=== PATIENT | female | born 1965 | race Caucasian/White ===

== ENCOUNTER 2021-10-12 22:59 | Emergency (ER) | payer MEDICAID, OTHER ==
[~2021-10-12] VITALS: Ht 149.8 cm; Wt 76.2 kg
--- OUTSIDE RECORDS SUMMARY | 2021-10-12 23:05 | XMS REPORT | Clinical Summary ---
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 Active clonazePAM (KLONOPIN) 2 Take 2 mg by 0 MG tablet mouth 3 (three) times a day as needed for anxiety. Active pantoprazole (PROTONIX) Take 40 mg by 0 40 MG tablet mouth daily. Active HYDROcodone-acetaminophen Take 1-2 10 tablet 0 (NORCO) 5-325 mg per tablets by 4 tablet mouth every 6 (six) hours as needed for pain. Active oxyCODONE-acetaminophen Take 1-2 20 tablet 0 (PERCOCET) 5-325 mg per tablets by 4 tablet mouth every 6 (six) hours as needed for pain. Active oxyCODONE-acetaminophen TK 1 T PO Q 40 0 0 (PERCOCET) 10-325 mg per 6 H PRF PAIN 3 tablet FOR 10 DAYS Active Problems Problem Noted Date Abdominal pain 06/24/2013 Overview: Formatting of this note might be differ ent from the original. ICD-10 conversion Diarrhea 06/24/2013 Peptic ulcer 12/30/2012 Overview: Formatting of this note might be differ ent from the original. ICD-10 conversion Family History Medical History Relation Name Comments Breast cancer Other Family History; Tahmina ast Cancer; Ovarian cancer Other Family History; Ova manoj Cancer; Relation Name Status Comments Other Social History Date Tobacco Use Types Packs/Day Years Used Current Every Day Smoker Comments Alcohol Use Standard Drinks/Week No 0 (1 standard drink = 0.6 o z pure alcohol) Sex Assigned at Date Recorded Not on file Last Filed Vital Signs Reading Time Taken Comments Vital Sign 132/82 05/25/2014 1:05 PM CDT Blood Pressure 85 05/25/2014 1:05 PM CDT Pulse 36.9 C (98.4 F) 05/25/2014 1:05 PM CDT Temperature 16 05/25/2014 1:05 PM CDT Respiratory Rate 98% 05/25/2014 1:05 PM CDT Oxygen Saturation - - Inhaled Oxygen Concentration 78 kg (172 lb) 05/25/2014 1:05 PM CDT Weight 149.9 cm (4' 11") 02/21/2014 10:31 AM CDT Height 34.74 02/21/2014 10:31 AM CDT Body Mass Index Plan of Treatment Not on file Results Not on filefrom Last 3 Months
--- NOTE | 2021-10-12 23:35 | Diagnostic Imaging Report ---
PROCEDURE: CT head without contrast. TECHNIQUE: Multiple contiguous axial images were obtained through the brain without the use of intravenous contrast. Auto Exposure Controls were utilized during the CT exam to meet ALARA standards for radiation dose reduction. INDICATION: Stroke symptoms. FINDINGS: The ventricles and sulci are within normal limits. There is no hydrocephalus or cerebral edema. There is no midline shift or mass effect. There is no intracranial mass, hemorrhage, or extra-axial fluid collection. The visualized paranasal sinuses and mastoid air cells are clear. There are no regional areas of decreased attenuation appreciated to suggest an acute CVA. IMPRESSION: No acute intracranial abnormality. Dictated by: Dictated on workstation # [id number]
--- NOTE | 2021-10-12 23:40 | ED General ---
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 Patient states that she can think of the words but is having trouble getting them out. Patient has a family history of brain aneurysm with two siblings, one who because of it. Patient is concerned. Patient denies having a headache currently. Patient does state that she has been sick for about 2 weeks with cough, fever, nausea and vomiting. Patients eyes are bloodshot and she states it is from coughing hard. Patient denies shortness of breath at this time. Patient is able to transfer normally and has no other complaints. Source of Information: Patient History of Present Illness Date Seen by Provider: Oct 12, 2021 Time Seen by Provider: 23:10 Initial Comments 56-year-old female presenting by private vehicle with complaints of developing trouble finding words around 9 PM. She has been sick with cough and upper respiratory infection for the last 2 weeks or more. She has been coughing to the point that she has burst blood vessels on the surface of her eyes. She has not been running a fever per the patient. She has a family history of brain aneurysms and siblings and was concerned that she may also have the aneurysm. She denies having any headache. She has been having swelling to her gums and around the roof of her mouth where she has multiple decayed teeth. She denies having any numbness or weakness in her arms or legs. She has no change in her vision. She denies any pain or burning with urination. She also denies any change in her bowels such as diarrhea. She has not been dizzy or lightheaded. She is anxious and states that she needs to get back with psychiatry to get back on her chronic medications that she takes for anxiety and agoraphobia. She also admits to history of methamphetamine abuse and IV drug abuse but states that she has been clean for 25 years. Timing/Duration: 1-3 Hours (Around 2100 tonight) Severity: Moderate Associated Systoms: No Chest Pain; Cough (For over 2 weeks); No Diaphoresis, No Fever/Chills, No Headaches, No Loss of Appetite, No Malaise, No Nausea/Vomiting, No Seizure, No Shortness of Air, No Syncope, No Weakness Allergies and Home Medications Allergies Coded Allergies: No Known Drug Allergies (Unverified , 10/12/21) Patient Home Medication List Home Medication List Reviewed: Yes Review of Systems Review of Systems Constitutional: No chills, No dizziness, No fever EENTM: nose congestion, other (Drainage from her nose backing up through her tear ducts into her eyes. Eyes matted with purulent drainage from nose. bilateral subconjunctival hemorrhage due to cough); No eye pain Respiratory: cough; No hemoptysis, No phlegm, No stridor; wheezing Cardiovascular: No chest pain, No palpitations Gastrointestinal: No abdominal pain, No nausea, No vomiting Genitourinary: No dysuria, No frequency Musculoskeletal: no symptoms reported Skin: No rash Psychiatric/Neurological: Anxiety; Denies Headache, Denies Numbness, Denies Paresthesia, Denies Weakness Past Dytreww-[id number]-Fhsrkt Hx Patient Social History Tobacco Use?: Yes Smoking Status: Current Everyday Smoker Smokeless Tobacco Frequency: Current Everyday User Substance use?: No Additional substance use comme: Previous IV drug use, has been clean for 6 years Alcohol Use?: No Pt feels they are or have been: No Past Medical History Surgery/Hospitalization HX: IV Drug Abuse, Mehtamphetamine Abuse, Anxiety Physical Exam Vital Signs Vital Signs - First Documented 10/12/21 23:02 Temp 36.1 Pulse 89 Resp 18 B/P (MAP) 153/90 (111) Pulse Ox 99 O2 Delivery Room Air Capillary Refill : Less Than 3 Seconds Height, Weight, BMI Height: '" Weight: lbs. oz. kg; 33.00 BMI Method: General Appearance: Anxious, Obese HEENT: PERRL/EOMI, Moist Mucous Membranes, Other (Widespread dental decay with multiple missing teeth. Gum swelling around teeth especially on the maxillary aspect of her dentition) Neck: Full Range of Motion, Normal Inspection, Non Tender, Supple Respiratory: Chest Non Tender, Lungs Clear, Normal Breath Sounds, No Accessory Muscle Use, No Respiratory Distress Cardiovascular: Regular Rate, Rhythm, Normal Peripheral Pulses Gastrointestinal: Normal Bowel Sounds, No Pulsatile Mass, Non Tender, Soft Rectal: Deferred Back: No CVA Tenderness, No Vertebral Tenderness Extremity: Normal Capillary Refill, Normal Inspection, No Pedal Edema Neurologic/Psychiatric: Alert, Oriented x3, post form remover II-XII Norm as Tested Skin: Warm/Dry, Other (multiple scars on arms with track ryan) Progress/Results/Core Measures Suspected Sepsis SIRS Temperature: Pulse: 89 Respiratory Rate: 18 Laboratory Tests 10/13/21 00:28: White Blood Count 13.1H Blood Pressure 153 /90 Mean: 111 Laboratory Tests 10/13/21 00:28: Creatinine 0.79, INR Comment 1.1, Platelet Count 510H, Total Bilirubin 0.2 Results/Orders Lab Results Laboratory Tests Test 10/12/21 23:41 10/13/21 00:02 10/13/21 00:23 10/13/21 00:28 Range/Units Urine Color DARK YELLOW Urine Clarity CLEAR Urine pH 6.0 5-9 Urine Specific [place] >=1.030 1.016-1.022 Urine Protein 2+ H NEGATIVE Urine Glucose (UA) TRACE H NEGATIVE Urine Ketones NEGATIVE NEGATIVE Urine Nitrite NEGATIVE NEGATIVE Urine Bilirubin 1+ H NEGATIVE Urine Urobilinogen 1.0 < = 1.0 MG/DL Urine Leukocyte Esterase NEGATIVE NEGATIVE Urine RBC (Auto) 1+ H NEGATIVE Urine RBC 2-5 H /HPF Urine WBC 0-2 /HPF Urine Squamous Epithelial Cells 5-10 /HPF Urine Crystals NONE /LPF Urine Bacteria FEW H /HPF Urine Casts PRESENT /LPF Urine Hyaline Casts 2-5 H /LPF Urine Granular Casts 0-2 H /LPF Urine Mucus LARGE H /LPF Urine Culture Indicated NO Urine Opiates Screen NEGATIVE NEGATIVE Urine Oxycodone Screen NEGATIVE NEGATIVE Urine Methadone Screen NEGATIVE NEGATIVE Urine Propoxyphene Screen NEGATIVE NEGATIVE Urine Barbiturates Screen NEGATIVE NEGATIVE Ur Tricyclic Antidepressants Screen NEGATIVE NEGATIVE Urine Phencyclidine Screen NEGATIVE NEGATIVE Urine Amphetamines Screen POSITIVE H NEGATIVE Urine Methamphetamines Screen POSITIVE H NEGATIVE Urine Benzodiazepines Screen POSITIVE H NEGATIVE Urine Cocaine Screen NEGATIVE NEGATIVE Urine Cannabinoids Screen NEGATIVE NEGATIVE Influenza Type A Antigen NEGATIVE NEGATIVE Influenza Type B Antigen NEGATIVE NEGATIVE Glucometer 131 H 70-110 MG/DL White Blood Count 13.1 H 4.3-11.0 10^3/uL Red Blood Count 4.86 3.80-5.11 10^6/uL Hemoglobin 13.4 11.5-16.0 g/dL Hematocrit 41 35-52 % Mean Corpuscular Volume 83 80-99 fL Mean Corpuscular Hemoglobin 28 25-34 pg Mean Corpuscular Hemoglobin Concent 33 32-36 g/dL Red Cell Distribution Width 14.7 H 10.0-14.5 % Platelet Count 510 H 130-400 10^3/uL Mean Platelet Volume 9.0 9.0-12.2 fL Immature Granulocyte % (Auto) 0 % Neutrophils (%) (Auto) 66 42-75 % Lymphocytes (%) (Auto) 23 12-44 % Monocytes (%) (Auto) 7 0-12 % Eosinophils (%) (Auto) 3 0-10 % Basophils (%) (Auto) 1 0-10 % Neutrophils # (Auto) 8.7 H 1.8-7.8 X 10^3 Lymphocytes # (Auto) 3.0 1.0-4.0 X 10^3 Monocytes # (Auto) 1.0 0.0-1.0 X 10^3 Eosinophils # (Auto) 0.4 H 0.0-0.3 10^3/uL Basophils # (Auto) 0.1 0.0-0.1 10^3/uL Immature Granulocyte # (Auto) 0.1 0.0-0.1 10^3/uL Prothrombin Time 14.4 12.2-14.7 SEC INR Comment 1.1 0.8-1.4 Activated Partial Thromboplast Time 26 24-35 SEC Sodium Level 136 135-145 MMOL/L Potassium Level 3.5 L 3.6-5.0 MMOL/L Chloride Level 99 98-107 MMOL/L Carbon Dioxide Level 22 21-32 MMOL/L Anion Gap 15 H 5-14 MMOL/L Blood Urea Nitrogen 12 7-18 MG/DL Creatinine 0.79 0.60-1.30 MG/DL Estimat Glomerular Filtration Rate 76 BUN/Creatinine Ratio 15 Glucose Level 135 H 70-105 MG/DL Calcium Level 9.2 8.5-10.1 MG/DL Corrected Calcium 9.2 8.5-10.1 MG/DL Total Bilirubin 0.2 0.1-1.0 MG/DL Aspartate Amino Transf (AST/SGOT) 12 5-34 U/L Alanine Aminotransferase (ALT/SGPT) 13 0-55 U/L Alkaline Phosphatase 123 40-136 U/L Troponin I < 0.30 <0.30 NG/ML Total Protein 8.3 H 6.4-8.2 GM/DL Albumin 4.0 3.2-4.5 GM/DL Serum Alcohol < 10 <10 MG/DL My Orders Orders - TILA COFFEY MD Ct Head Wo (10/12/21 23:05) Cbc With Automated Diff (10/12/21 23:15) Protime With Inr (10/12/21:15) Partial Thromboplastin Time (10/12/21:15) Comprehensive Metabolic Panel (10/12/21:15) Troponin I Fs (10/12/21 23:15) Ua Culture If Indicated (10/12/21 23:15) Ekg Tracing (10/12/21:15) Nothing By Mouth (10/13/21 Breakfast) Accucheck Stat ONCE (10/12/21 23:15) Ed Iv/Invasive Line Start (10/12/21 23:15) Vital Signs Stroke Patient Q15M (10/12/21:15) O2 (10/12/21:15) Intake & Output 06,14,22 (10/12/21 23:15) Monitor-Rhythm Ecg Trace Only (10/12/21:15) Dysphagia Screening Tool (10/12/21:) Drug Screen Stat (Urine) (10/12/21:) Alcohol (10/12/21:15) Covid 19 Inhouse Test (10/12/21 23:36) Influenza A & B Antigens (10/12/21 23:36) Isolation Central Supply Req (10/12/21 23:36) Chest 1 View Ap/Pa Only (10/13/21 00:06) Vital Signs/I&O 10/12/21 23:02 Temp 36.1 Pulse 89 Resp 18 B/P (MAP) 153/90 (111) Pulse Ox 99 O2 Delivery Room Air Capillary Refill : Less Than 3 Seconds Blood Pressure Mean: 111 Progress Note #1: Progress Note As patient was having difficulty with her words and states that this started around [address] scan to evaluate for acute hemorrhage or stroke. NIH scale is 2 based off of expressive aphasia and dysarthria. With her cough for over 2 weeks and shortness of breath we will also obtain a chest x-ray and Covid and influenza swab. Try to obtain urine to check for infection as well as urine drug screen. Alcohol level. Will obtain basic labs and electrolytes. Progress Note #2: Progress Note CT had did not demonstrate any acute hemorrhage or bleeding. No acute stroke. Despite multiple attempts by nursing we were unable to obtain IV access. Labs were finally obtained on the patient. Patient had fluctuating symptoms were at one moment she would be clear in her speech and another she would have difficulty finding words when speaking. Due to the fluctuation of her symptoms as well as the relatively mild symptoms and her lack of IV access she is not a TPA candidate. Progress Note #3: Progress Note Labs show elevated white blood cell count within normal differential. Her urine did not show any sign of infection. Her chemistry panel did not show any acute electrolyte imbalance to account for her symptoms. Her coags do not show acute significant abnormality. Her alcohol level was 0 and her urine drug screen was positive for methamphetamines, amphetamines, benzodiazepines. When I advised her of the results she stated that she did use meth yesterday. She was still very concerned that she maybe had an aneurysm or something going on with her brain. I advised her that the testing I had here had been maxed out and I did not have any additional imaging or testing I can do at this time. She would need to go to a larger facility with an actual hospital that had neurology and MRI facilities available. Patient was requesting to go to [facility] if possible. I placed a phone call to the [facility] transfer center and was advised that they did not have any telemetry or monitored beds within the system. I then placed a call to the [facility] access center. I spoke with DENISHA Hanks. She reported that [facility] did have monitored beds available. She will have the resident call back and speak with me about the patient. [id number] Dr. Santos accepted on behalf of Dr. Mendoza for the patient to come to telemetry bed in [facility]. Progress Note #4: Progress Note When I went back to advise the patient of having a excepting location and physician she refused ambulance transport stating that she had agoraphobia and could not stand being in close a small space like the back of an ambulance. Despite offering to give anxiety medicine or help with her anxiety as well as counseled about the benefits versus the risks of not taking any ambulance patient insisted that she would not go by ambulance. She demanded to have her drive her instead. 0205 I called back to update the [facility] access center and spoke with DENISHA Combs. Sh e stated that they would not be able to make the patient a direct admit with her coming by private vehicle. She would have to start in the ED. There was no guarantee a bed would be available or saved for her. I updated the patient about this and she continued to insist that she did not want to go by ambulance. ECG Initial ECG Impression Date: Oct 12, 2021 Initial ECG Impression Time: 23:42 Initial ECG Rate: 86 Initial ECG Rhythm: Normal Sinus Initial ECG Comparisson: No Previous ECG Available Comment Normal sinus rhythm with a heart rate of 86 bpm. [place] interval 157 ms. There are premature atrial complexes. There is LVH with secondary repolarization abnormality. QT interval 394 ms with a QTc interval 472 ms. She has no acute ST elevation. There is artifact on the tracing. There is no prior tracing available for comparison Diagnostic Imaging Diagonstic Imaging: CT Plain Films/CT/US/NM/MRI: head Comments NAME: HOLLIE MARCOS [facility] REC#: [id number] PT STATUS: REG ER : [id number] PHYSICIAN: TILA COFFEY MD ADMIT DATE: 10/12/21/ER FS Draft Date of Exam:10/12/21 CT HEAD WO PROCEDURE: CT head without contrast. TECHNIQUE: Multiple contiguous axial images were obtained through the brain without the use of intravenous contrast. Auto Exposure Controls were utilized during the CT exam to meet ALARA standards for radiation dose reduction. INDICATION: Stroke symptoms. FINDINGS: The ventricles and sulci are within normal limits. There is no hydrocephalus or cerebral edema. There is no midline shift or mass effect. There is no intracranial mass, hemorrhage, or extra-axial fluid collection. The visualized paranasal sinuses and mastoid air cells are clear. There are no regional areas of decreased attenuation appreciated to suggest an acute CVA. IMPRESSION: No acute intracranial abnormality. Dictated on workstation # [id number] Dict: 10/12/21 2331 Trans: 10/12/21 2335 [facility] [id number] Interpreted by: PEEWEE KOVACS MD Electronically signed by: Reviewed: Reviewed by Me Diagonstic Imaging: Xray Plain Films/CT/US/NM/MRI: chest Comments No acute process Reviewed: Reviewed by Me Departure Impression Primary Impression: Expressive aphasia Additional Impressions: Dysarthria Upper respiratory infection with cough and congestion Person under investigation for COVID-19 Methamphetamine abuse Disposition: XF SHT-TRM HOSP Condition: Stable Transfer Transfer Reason: Exceeds level of care (Needs stroke work up with Neuro eval) Time Spoke to Accepting Phy: 01:58 Transfer Progress Notes d/w Dr. Fernández for Dr. Mendoza at [facility] and she accepted pt for transfer. They will call back with bed assignment. When advised pt of being accepted and needing to go by ambulance she refused stating she had agoraphobia and wanted her to drive her. She said she could not tolerate being inside a small ambulance. Despite explaining to her that she would need to be monitored for her safety and to make sure her neurologic status did not change or worsen she continued to refuse ambulance transport. She was adamant that she needed her to drive her. She also was very anxious and stated she would have a panic attack and not be able to tolerate it if she did not go with him. I advised her that she would have to go through the emergency department at [facility] and we would send copies of our labs radiology testing but she may have to do some test over. She voiced understanding and stated that she still wanted her to drive her. 0205 I called back to the [facility] access center to update DENISHA Hanks who I been working with about the transfer. I reached DENISHA Combs and updated her about the patient wanting to come by private vehicle and not by ambulance transport. She acknowledged that the patient would need to start over in the ED and there was no guarantee that she would have a bed by coming by private vehicle. Transfer Facility: [facility] Method of Transfer: Private Vehicle NIH Stroke Scale NIH Stroke Scale NIH : Select: Initial Level of Consciousness: 0=Alert Level of Consciousness-Questio: 0=Answers both month/age LOC Commands: 0=Performs both tasks Gaze: 0=Normal Visual Lozada: 0=No visual loss Facial Movement (Facial Paresi: 0=Normal symmetrical mnt Motor Function-Arms Right: 0=No drift Motor Function-Arms Left: 0=No drift Motor Function-Legs Right: 0=No drift Motor Function-Legs Left: 0=No drift Limb Ataxia: 0=Absent Sensory: 0=Normal:no loss Best Language: 1=Mild to moderat aphasia Dysarthria: 1=Mild to moderate loss Extinction & Inattention: 0=No abnormality NIH Stroke Scale Score: 2 TILA COFFEY MD Oct 12, 2021 23:40
[2021-10-12 23:53] LABS: BILIRUBIN,URINE 1+ (NEGATIVE); CLARITY,URINE CLEAR; COLOR,URINE DARK YELLOW; GLUCOSE, URINE (UA) TRACE (NEGATIVE); KETONES,URINE NEGATIVE (NEGATIVE); NITRITE,URINE NEGATIVE (NEGATIVE); PROTEIN,URINE 2+ (NEGATIVE)
[2021-10-12 23:54] LABS: BACTERIA,URINE FEW /HPF; GRANULAR CASTS,URINE 0-2 /LPF; LEUKOCYTE ESTERASE ,URINE NEGATIVE (NEGATIVE); WBC,URINE 0-2 /HPF
[2021-10-12 23:58] LABS: AMPHETAMINE SCREEN, URINE POSITIVE (NEGATIVE); BARBITURATE SCREEN URINE NEGATIVE (NEGATIVE); BENZODIAZEPINES SCREEN URINE POSITIVE (NEGATIVE); CANNABINOID SCREEN, URINE NEGATIVE (NEGATIVE); COCAINE SCREEN URINE NEGATIVE (NEGATIVE); METHADONE STAT NEGATIVE (NEGATIVE); METHAMPHETAMINE SCREEN URINE S POSITIVE (NEGATIVE); OPIATE SCREEN URINE NEGATIVE (NEGATIVE); OXYCODONE STAT NEGATIVE (NEGATIVE); PROPOXYPHENE STAT NEGATIVE (NEGATIVE); TRICYCLIC ANTIDEPRESSANTS SCRE NEGATIVE (NEGATIVE)
[2021-10-13 00:34] LABS: WHITE BLOOD COUNT 13.1 10^3/uL (4.3-11.0)
[2021-10-13 00:35] LABS: BASOPHILS # (AUTO) 0.1 10^3/uL (0.0-0.1); BASOPHILS % (AUTO) 1 % (0-10); EOSINOPHILS # (AUTO) 0.4 10^3/uL (0.0-0.3); EOSINOPHILS % (AUTO) 3 % (0-10); HEMATOCRIT 41 % (35-52); HEMOGLOBIN 13.4 g/dL (11.5-16.0); LYMPHOCYTES % (AUTO) 23 % (12-44); MEAN CORPUSCULAR HEMOGLOBIN 28 pg (25-34); MEAN CORPUSCULAR HGB CONC 33 g/dL (32-36); MEAN CORPUSCULAR VOLUME 83 fL (80-99); MONOCYTES % (AUTO) 7 % (0-12); NEUTROPHILS # (AUTO) 8.7 X 10^3 (1.8-7.8); NEUTROPHILS % (AUTO) 66 % (42-75); PLATELET COUNT 510 10^3/uL (130-400)
[2021-10-13 00:46] LABS: INR 1.1 (0.8-1.4); PROTHROMBIN TIME PATIENT 14.4 SEC (12.2-14.7)
[2021-10-13 00:55] LABS: ALANINE AMINOTRANSFERASE 13 U/L (0-55); ALKALINE PHOSPHATASE 123 U/L (40-136); BILIRUBIN,TOTAL 0.2 MG/DL (0.1-1.0); BUN/CREATININE RATIO 15; CALCIUM 9.2 MG/DL (8.5-10.1); CARBON DIOXIDE 22 MMOL/L (21-32); CHLORIDE 99 MMOL/L (98-107); CREATININE SERUM 0.79 MG/DL (0.60-1.30); GFR ESTIMATED 76; GLUCOSE 135 MG/DL (70-105); POTASSIUM 3.5 MMOL/L (3.6-5.0); SODIUM 136 MMOL/L (135-145); TOTAL PROTEIN 8.3 GM/DL (6.4-8.2)
[2021-10-13 02:35] VITALS: BP 151/83
--- NOTE | 2021-10-13 05:35 | Diagnostic Imaging Report ---
EXAMINATION: Chest 1 view HISTORY: Stroke like symptoms. Weakness. COMPARISON: None available. FINDINGS: The lung volumes are normal. No focal consolidation is seen. No large pleural effusion or pneumothorax is seen. The cardiomediastinal silhouette is normal in size and contour. No acute osseous abnormality is seen. IMPRESSION: 1. No acute pleuroparenchymal process. Dictated by: Dictated on workstation # [id number]
== END 2021-10-13 02:35 | disposition short-term general hospital (02) ==
LOC: ER FS 23:01
DX: R47.01 Aphasia (principal); R47.1 Dysarthria and anarthria; J06.9 Acute upper respiratory infection, unspecified; F15.10 Other stimulant abuse, uncomplicated; R09.81 Nasal congestion; E66.9 Obesity, unspecified; F17.210 Nicotine dependence, cigarettes, uncomplicated; Z68.33 Body mass index [BMI] 33.0-33.9, adult; Z20.822 Contact with and (suspected) exposure to COVID-19
CPT/HCPCS: 36415; 70450; 71045; 80053; 80306; 80320; 81000; 82947; 84484; 85025; 85610; 85730; 87636; 87804; 93005; 93041